=== PATIENT | male | born 1995 | race Caucasian/White ===

== ENCOUNTER 2018-08-17 14:03 | Inpatient (IN) | payer OTHER ==
[~2018-08-17] VITALS: Ht 172.7 cm; Wt 61.2 kg
[~2018-08-17 14:03] MED LIST: FENTANYL CITRATE/PF 100MCG/2 ML INJ ONE; MIDAZOLAM HCL 2 MG/2 ML VIAL ONE
--- OUTSIDE RECORDS SUMMARY | 2018-08-17 14:06 | XMS REPORT ---
Author Author [facility] Address Unknown Phone Unavailable Care Team Providers Care Manager Multicultural Name Role Phone UNKNOWN, REFFERING PP Unavailable Urvashi Hinds Unavailable Unavailable Paulo Jeong Unavailable Unavailable Brandon Miles Unavailable Unavailable IVETH BENDER Unavailable Unavailable Problems This patient has no known problems. Allergies, Adverse Reactions, Alerts This patient has no known allergies or adverse reactions. Medications This patient has no known medications. Results Test Description Test Time Test Comments Text Results Atomic Results Result Comments Facial Bones W/ Mpr 2018-02-16 16:43:00 [place] [address] RADIOLOGY SERVICES REPORT Name: CHRISTOPHE QUINN Acct Number: [id number] :1995 Age:22 Sex:M Ord Phys: Elvis Redding PAC Unit Number: [id number] [address] [facility] [address]: NONE Status: REG ER Exam Date: 02/16/18 EXAM DESCRIPTION: CT - Facial Bones W/ Mpr - 02/16/2018 4:31 pm CLINICAL HISTORY: Right-sided head and facial trauma, right periorbital pain, headache COMPARISON: CT head same date TECHNIQUE: Axial 2 millimeter thick images of the facial bones were obtained with sagittal and coronal reconstruction imaging. All CT scans are performed using dose optimization technique as appropriate and may include automated exposure control or mA/KV adjustment according to patient size. FINDINGS: No mandible fracture identified. Condyles of the mandible are normally positioned. Mastoid air cells are clear. No globe or orbital content abnormality identified. No facial bone fracture is seen. Left deviation of the nasal septum is present anteriorly with slight right deviation in the mid to posterior septum. Patient has significant mucosal thickening of the right maxillary sinus without air-fluid level. Patchy right-sided frontal and ethmoid mucosal thickening present. There is minimal sphenoid mucosal thickening. IMPRESSION: No fracture or other significant bone or soft tissue finding. Significant mucosal thickening of the right maxillary sinus without air-fluid level. Patchy mucosal thickening elsewhere in the right-side sinuses. Signed By: Raymond Raphael MD Signed AT: 02/16/18 1644 Head Brain Wo Cont 2018-02-16 16:40:00 [place] [address] RADIOLOGY SERVICES REPORT Name: CHRISTOPHE QUINN Acct Number: [id number] :1995 Age:22 Sex:M Ord Phys: Elvis Redding Unit Number: [id number] [facility] Dr: FLOYD Status: [facility] ER ER Exam Date: 02/16/18 EXAM DESCRIPTION: CT - Head Brain Wo Cont - 02/16/2018 4:31 pm CLINICAL HISTORY: Headache, blunt force trauma to the right side of the head COMPARISON: CT imaging December 28, 2017 TECHNIQUE: Axial 5 mm thick images of the head were obtained without IV contrast. All CT scans are performed using dose optimization technique as appropriate and may include automated exposure control or mA/KV adjustment according to patient size. FINDINGS: No intracranial hemorrhage, mass, edema or shift of mid- line structures. No acute infarction changes seen. No abnormal extra-axial fluid collections. Ventricles are normal. Mastoid air cells are clear. Facial bones, sinuses and orbits are separately detailed. No acute bony findings. IMPRESSION: Negative non-contrast CT head examination. Intracranial findings are stable from comparison. Signed By: Raymond Raphael MD Signed AT: 02/16/18 1641 Head Brain Wo Cont 2017-12-29 08:29:00 [place] [address] RADIOLOGY SERVICES REPORT Name: CHRISTOPHE QUINN Acct Number: [id number] :1995 Age:22 Sex:M Ord Phys: Paulo Jeong MD Unit Number: [id number] [facility] Arturo BEGUM Status: [facility] ER ER Exam Date: 12/28/17 EXAM DESCRIPTION: CT - Head Brain Wo Cont - 12/29/2017 6:54 am CLINICAL HISTORY: Headache COMPARISON: October 2016 TECHNIQUE: Computed axial tomography of the head was obtained. IV contrast was not requested. Preliminary report was generated by [employer] and reviewed prior to dictation All CT scans are performed using dose optimization technique as appropriate and may include automated exposure control or mA/KV adjustment according to patient size. FINDINGS: An intracranial bleed is not seen . The ventricles are normal in caliber. No extra- axial fluid collection is noted. Fluid within the sinuses/ mastoids is not seen. IMPRESSION: No acute intracranial abnormality is seen. If patient's symptoms persist MRI of the brain would be recommended. Signed By: Ayaan Dodge MD Signed AT: 12/29/17 0830 Abdomen Single View 2017-09-14 12:40:00 [place] [address] RADIOLOGY SERVICES REPORT Name: CHRISTOPHE QUINNDEN Acct Number: [id number] :1995 Age:22 Sex:M Ord Phys: Paulo Bynum MD Unit Number: [id number] [facility] Dr: Gregorio Cano DO Status: [facility] ER Exam Date: 09/14/17 EXAM DESCRIPTION: RAD - Abdomen Single View - 09/14/2017 12:30 pm CLINICAL HISTORY: ABD PAIN Pain COMPARISON: No comparisons FINDINGS: The bowel gas pattern is non-obstructive. No evidence of free air or pneumatosis. No suspicious calcifications. No significant bony findings. IMPRESSION: Negative examination. Signed By: Naveen Jules MD Signed AT: 09/14/17 1240 Chest Pa And Lat (2 Views) 2017-09-14 12:35:00 [place] [address] RADIOLOGY SERVICES REPORT Name: CHRISTOPHE QUINN [place] Acct Number: [id number] :1995 Age:22 Sex:M Ord Phys: Paulo Bynum MD Unit Number: [id number] [facility] Dr: Gregorio Cano DO Status: [facility] ER Exam Date: 09/14/17 EXAM DESCRIPTION: RAD - Chest Pa And Lat (2 Views) - 09/14/2017 12:28 pm CLINICAL HISTORY: MALAISE Asthma, smoker COMPARISON: Chest Pa And Lat (2 Views) dated 05/11/2016 FINDINGS: The lungs are clear. The heart is normal in size. No displaced fractures. IMPRESSION: No acute or concerning finding suspected. Signed By: Naveen Jules MD Signed AT: 09/14/17 1235 Basic Metabolic Panel 2017-09-14 12:09:00 Serum or plasma sodium measurement (moles/volume) (test qnvd=6656-9) 137 mmol/L 136-145 Potassium [Moles/volume] in Serum or Plasma (test zncm=9082-7) 4.1 mmol/L 3.5-5.1 Chloride [Moles/volume] in Serum or Plasma (test pwba=5080-4) 105 mmol/L 98-107 Carbon dioxide, total [Moles/volume] in Serum or Plasma (test nfzl=8431-7) 29 mmol/L 21-32 Glucose [Mass/volume] in Serum or Plasma (test elsk=1676-6) 103 mg/dL 74-106 Urea nitrogen [Mass/volume] in Serum or Plasma (test dqjv=9903-3) 12 mg/dL 7-18 Creatinine [Mass/volume] in Serum or Plasma (test xfah=9691-4) 1.10 mg/dL 0.55-1.3 Estimated glomerular filtration rate (GFR) determination (test jwwd=38344-0) 85 mL =/>90 FOR CHRONIC KIDNEY DISEASE: GFR STAGE DESCRIPTION=/>90 STAGE 1 NORMAL--OR-- MINIMAL KIDNEY DAMAGE WITH NORMAL GFR 60-89 STAGE 2 MILD DECREASE IN GFR 30-59 STAGE 3 MODERATE DECREASE IN GFR 15-29 STAGE 4 SEVERE DECREASE IN GFR <15 STAGE 5 KIDNEY FAILURE The Glomerular Filtration Rate (GFR) has been calculated using the IDMS-Traceable MDRD Study Equation. Calcium [Mass/volume] in Serum or Plasma (test zbyy=92982-5) 9.1 mg/dL 8.5-10.1 Comment Bed:11Creatine kinase [Enzymatic activity/volume] in Serum or Plasma 2017-09-14 12:09:00* Test Item Value Reference Range Comments Creatine kinase [Enzymatic activity/volume] in Serum or Plasma (test tdxh=5625-7) 74 U/L 39-308 Comment Bed:Influenza Type A Aumowcl2944-70-63 12:04:00* Test Item Value Reference Range Comments FLU A ----- (test code=FLUA) NEGATIVE (could be below detectable limits, suggest culture) Comment Bed:11Influenza Type B Tprcfyt9390-31-19 12:04:00* Test Item Value Reference Range Comments FLU B ----- (test code=FLUB) NEGATIVE (could be below detectable levels, suggest culture) Comment Bed:11Complete blood count (CBC) with automated white blood cell (WBC) oqslzrjhsnay3335-04-72 11:54:00* Test Item Value Reference Range Comments White blood cell count (test cwku=KDE7007) 5.5 4.3-10.9 Blood erythrocytes count (number/volume) (test rlvk=72532-7) 5.62 M/ul 4.33-5.43 Hemoglobin measurement (test iacq=IZG2972) 15.8 g/dL 13.6-17.9 Blood hematocrit (volume fraction) (test wrsr=68657-1) 47.7 % 39.6-49.0 MCV (test tpae=55300-9) 84.9 fL 80-100 MCH (test jtvg=69436-5) 28.0 pg 27.0-35.0 MCHC (test code=MCHC) 33.0 g/dL 32.0-36.0 Platelets (test code=PLT) 156 152-406 Red Cell Distribution Width (test code=RDW) 14.5 % 12.1-15.2 Blood platelet mean volume (test pcmw=11813-8) 9.3 fL 7.6-11.3 Neutrophils % (test code=JALYN%) 79.5 % 41.7-73.7 Lymphocytes/leuk NFr Bld (test dxwj=18715-5) 9.0 % 15.3-44.8 Monocyte percentage (test tvxo=0997-6) 9.7 % 3.3-12.3 Eosinophil % (test yhtu=881-0) 1.2 % 0-4.4 Basophil % (test bqwh=75434-9) 0.6 % 0-1.3 Absolute neutrophil count (test ajun=951-7) 4.4 1.8-8.0 Absolute lymphocyte count (test xyzy=48178-0) 0.5 0.7-4.9 Absolute monocyte count (test jnqo=031-6) 0.5 0.1-1.3 Absolute Eosinophils (test code=EOA) 0.1 0-0.5 Absolute Basophils (test code=BASA) 0.0 0-0.5 Comprehensive Metabolic Smsom8726-69-66 22:10:00* Test Item Value Reference Range Comments Sodium (test code=NA) 141 mmol/L 135-145 Potassium (test code=K) 4.1 mmol/L 3.5-5.1 Chloride (test code=CL) 103 mmol/L 98-105 Carbon Dioxide (test code=CO2) 26 mmol/L 22-29 Glucose (test code=GLU) 97 mg/dL 70-115 Blood Urea Nitrogen (test code=BUN) 8 mg/dL 6-20 Creatinine (test code=CREAT) 0.9 mg/dL 0.7-1.2 Calcium (test code=CA) 9.4 mg/dL 8.3-10.5 Prot Total (test code=TP) 7.2 g/dL 6.4-8.3 Albumin (test code=ALB) 4.5 g/dL 3.5-5.2 A/G Ratio (test code=AGRATIO) 1.7 Ratio Globulin (test code=GLOB) 2.7 2.9-3.1 Bili Total (test code=TBIL) 0.3 mg/dL 0.1-0.9 Alk Phos (test code=APHOS) 79 U/L 40-129 AST (test code=AST) 16 U/L 1-40 ALT (test code=ALT) 9 U/L 1-41 BUN/Creatinine Ratio (test code=BCRATIO) 8.9 Anion Gap (test code=AGAP) 12 mmol/L 7-16 Estimated GFR (test code=GFR) >60 mL/min/1.73m2 eGFR (estimated Glomerular Filtration Rate) is an estimated value,calculated from the patient's serum creatinine using the MDRD equation.It is NOT the patient's actual GFR. The eGFR provides a more clinicallyuseful measure of kidney disease than serum creatinine alone.This calculation takes sex and race into account, if the informationis provided. If the race is not provided, and the patient isAfrican-Ugandan, multiply by 1.212. If sex is not provided, and thepatient is female, multiply by 0.742. Results for patients <18 years ofage have not been validated by the MDRD study and should be interpretedwith caution.eGFR Result Interpretation:eGFR > or=60 is in the Normal RangeeGFR < 60 may mean kidney diseaseeGFR < 15 may mean kidney failureRanges recommended by the National Kidney Foundat ion,http://nkdep.nih.gov AJY5X3561-20-18 22:02:00* Test Item Value Reference Range Comments Amphetamine (test code=AMPH) Negative Negative For diagnostic purposes only, positive results should always be assessedin conjunctionwith the patient's medical history,clinical examination and otherfindings.To fulfill legal requirements, a more specific alternate chemical methodmust be used inorder to obtain a Confirmed analytical result. GC/MS is the preferred confirmatory method. Barbiturates (test code=GEORGES) Negative Negative Benzodiazepine (test code=WILLIAM) Negative Negative Cocaine (test code=COCA) Negative Negative Methadone (test code=MTHD) Negative Negative Opiates (test code=OPIA) Negative Negative PCP (test code=PCP) Negative Negative Propoxyphene (test code=PROPOX) Negative Negative THC (test code=THC) POSITIVE Negative Alcohol, Urine (test code=ETOHU) <0.01 g/dL 0.00-0.01 Urinalysis Thkivygy4331-60-52 21:45:00* Test Item Value Reference Range Comments Color (test code=COLOR) Yellow Yellow,Straw,Pl yellow Clarity (test code=CLAR) Clear Clear Specific [place] (test code=SPGR) 1.012 1.001-1.035 pH (test code=PH) 5.0 5.0-9.0 Ketone (test code=KET) Negative mg/dL Negative Glucose (test code=GLUCUR) Negative mg/dL Negative Protein (test code=PROT) Negative mg/dL Negative Bilirubin (test code=BILI) Negative mg/dL Negative Occult Blood (test code=UDOB) Negative Negative Urobilinogen (test code=UROB) 0.2 mg/dL 0.2-1.0 Nitrite (test code=NIT) Negative Negative Leuk Esterase (test code=LEUK) Negative Negative Micros Exam (test code=MEXAM) Not indicated CBC with Skkfjwbbksvx5043-95-67 21:44:00* Test Item Value Reference Range Comments WBC (test code=WBC) 8.2 K/cumm 4.4-10.5 RBC (test code=RBC) 5.37 M/cumm 4.10-5.70 Hemoglobin (test code=HGB) 15.3 gm/dL 13.4-17.4 Hematocrit (test code=HCT) 45.6 % 38.7-52.0 MCV (test code=MCV) 85.0 fL 80-100 MCH (test code=MCH) 28.6 pg 27.0-32.5 MCHC (test code=MCHC) 33.6 g/dL 32.0-37.5 RDW (test code=RDW) 13.5 % 11.5-14.5 Platelet Count (test code=PLTCT) 182 K/cumm 140-440 MPV (test code=MPV) 8.1 fL Diff Method (test code=DIFFM) Auto Neutrophil (test code=NEUT) 77.4 % 36-70 Lymphocyte (test code=LYMPH) 13.7 % 12-44 Monocyte (test code=MONO) 7.4 % 0-11 Eosinophil (test code=EOS) 1.1 % 0-7 Basophil (test code=BASO) 0.4 % 0-2 Neutro Abs (test code=ANEUT) 6.4 K/cumm 1.6-7.4 Lymph Abs (test code=ALYMPH) 1.1 K/cumm 0.5-4.6 [place] Abs (test code=AMONO) 0.6 K/cumm 0.0-1.2 Eos Abs (test code=AEOS) 0.09 K/cumm 0.00-0.74 Baso Abs (test code=ABASO) 0.0 K/cumm 0.00-0.21 Urine dipstick testing at raaxi-hq-mmxe0882-08-19 20:43:00* Test Item Value Reference Range Comments Urine specific gravity measurement (test vtph=6579-2) 1.020 1.005-1.030 Urine glucose detection (test cagj=3976-2) Negative NEG Urine Ketones (test code=UKET) NEGATIVE NEG Urine blood detection (test oxmi=55139-0) Negative NEG Urine pH (test bwcl=3946-8) 7.5 5.0-7.0 Urinalysis with microscopy (test wbeu=64214-2) NEGATIVE NEG Urine nitrate measurement (test smcv=03690-6) NEGATIVE NEG Urine Leukocyte Esterase (test code=UESTR) NEGATIVE NEG Comment Bed:16 edr NEG NEG NEG NEG NEG 7.5 NEG Y 1.020Complete blood count (CBC) with automated white blood cell (WBC) gwsgcrygyydr1370-20-90 20:28:00* Test Item Value Reference Range Comments White blood cell count (test zrqj=WMG2855) 7.6 4.3-10.9 Blood erythrocytes count (number/volume) (test tbmr=04169-7) 5.36 M/ul 4.33-5.43 Hemoglobin measurement (test dasb=RHL2508) 15.2 g/dL 13.6-17.9 Blood hematocrit (volume fraction) (test bzma=37292-6) 45.5 % 39.6-49.0 MCV (test jpzd=33698-6) 84.9 fL 80-100 MCH (test levn=18157-1) 28.4 pg 27.0-35.0 MCHC (test code=MCHC) 33.4 g/dL 32.0-36.0 Platelets (test code=PLT) 188 152-406 Red Cell Distribution Width (test code=RDW) 14.1 % 12.1-15.2 Blood platelet mean volume (test pgtp=37972-1) 9.5 fL 7.6-11.3 Neutrophils % (test code=JALYN%) 73.1 % 41.7-73.7 Lymphocytes/leuk NFr Bld (test tamc=17717-6) 17.8 % 15.3-44.8 Monocyte percentage (test zowm=1997-8) 7.9 % 3.3-12.3 Eosinophil % (test bqka=126-0) 0.7 % 0-4.4 Basophil % (test rsuu=17880-6) 0.5 % 0-1.3 Absolute neutrophil count (test dmym=573-1) 5.5 1.8-8.0 Absolute lymphocyte count (test jyjv=81986-2) 1.3 0.7-4.9 Absolute monocyte count (test trov=979-1) 0.6 0.1-1.3 Absolute Eosinophils (test code=EOA) 0.0 0-0.5 Absolute Basophils (test code=BASA) 0.0 0-0.5 Serum or plasma ethanol epglkbdkk1365-62-41 20:27:00Test Ordered to Rule Out VTE/DVT? N< 10^^SCT^< 10(No normal range; <50 has limited clinical effect)Basic Metabolic Nivpj0115-52-74 20:27:00* Test Item Value Reference Range Comments Sodium level (test evtx=LOD3292) 143 meq/L 135-145 3.8 Chloride measurement (test ssyo=QEQ9710) 107 meq/L 101-111 Bicarbonate (test code=CO2) 30 meq/L 21-31 Glucose measurement (test bcwn=YGL7062) 90 mg/dL 65-120 ADA Clinical Practice Recommendation: <100 mg/dl=Normal Fasting Glucose BUN Bld-mCnc (test nntf=6440-2) 14 mg/dL 6-20 Creatinine measurement (test zzmn=ZIX3838) 1.14 mg/dL 0.61-1.24 The creatinine method used has been calibrated to be traceable to Isotope dilution Mass Spectrometry (IDMS). For more information: www.nkdep.nih.gov Estimated glomerular filtration rate (GFR) determination (test aufv=69963-8) 83 mL =/>90 FOR CHRONIC KIDNEY DISEASE: GFR STAGE DESCRIPTION=/>90 STAGE 1 NORMAL--OR-- MINIMAL KIDNEY DAMAGE WITH NORMAL GFR 60-89 STAGE 2 MILD DECREASE IN GFR 30-59 STAGE 3 MODERATE DECREASE IN GFR 15-29 STAGE 4 SEVERE DECREASE IN GFR <15 STAGE 5 KIDNEY FAILURE The Glomerular Filtration Rate (GFR) has been calculated using the IDMS-Traceable MDRD Study Equation. Calcium Level (test code=CA) 9.6 mg/dL 8.5-10.5 Test Ordered to Rule Out VTE/DVT? NLiver (Hepatic) Skzzzuam8070-54-81 20:27:00* Test Item Value Reference Range Comments Aspartate aminotransferase (AST) measurement (test ycia=ICB9150) 17 [iU]/L 10-42 ALT/SGPT (test code=SGPT) 10 [iU]/L 10-60 Alkaline Phosphatase (test code=ALK) 71 [iU]/L 42-121 Bilirubin total (test piji=ISV0962) 0.5 mg/dL 0.3-1.2 Bilirubin direct (test whek=2266-4) <0.1 mg/dL 0-0.2 Serum total protein measurement (test yqii=6706-0) 7.6 g/dL 6.0-8.3 Albumin measurement (test pylc=XDA6366) 4.4 g/dL 3.2-5.5 Globulin (test code=GLOB) 3.2 g/dL 2.3-3.5 Albumin/Globulin Ratio (test code=A/G) 1.4 1.1-1.8 Test Ordered to Rule Out VTE/DVT? NAcetaminophen Wpnny0294-21-15 20:27:00* Test Item Value Reference Range Comments Acetaminophen Level (test code=ACETA) < 10.0 10-30 PANIC VALUES: AFTER 4 HRS. INGESTION RESULT >200 AFTER 12 HRS. INGESTION RESULT >50 Test Ordered to Rule Out VTE/DVT? NSalicylates Szjzl2625-36-11 20:27:00* Test Item Value Reference Range Comments Salicylates Level (test code=DAIANA) < 4.0 <30 Test Ordered to Rule Out VTE/DVT? NUrine drug hnwieu8253-22-98 20:04:00* Test Item Value Reference Range Comments Phencyclidine, Urine (test code=PCP) NEGATIVE Benzodiazepines (test code=BZO) NEGATIVE Urine cocaine detection by screening method (test tliq=57237-8) Negative Amphetamines,Urine (test code=AMP) NEGATIVE Urine rouuz-3-gkhibuminnnzngsspciq (THC) measurement (test fyvu=ZIQ7792) POSITIVE Urine opiates detection (test vygj=7648-0) Negative Barbiturates (test code=BAR) NEGATIVE Oxycodone, Urine (test code=OXY) NEGATIVE Urine methylenedioxymethamphetamine (MDMA) detection (test kvnw=68320-8) Negative This urine was qualitatively tested for the following drugs at the cut-off levels listed: DRUG CUT-OFF LEVEL ---- PHENCYCLIDINE 25 ng/mL BENZODIAZEPINES 200 ng/mL COCAINE 300 ng/mL AMPHETAMINES 1000 ng/mL TETRAHYDROCANNABINOL 50 ng/mL OPIATES 2000 ng/mL BARBITURATES 200 ng/mL OXYCODONE 300 ng/mL ECSTASY 500 ng/mL These are only preliminary test results. Positive results have not been confirmed. For a confirmed analytical result, gas chromatography/mass spectrometry is the preferred method. Results are to be used only for medical (i.e. treatment) purposes. Unconfirmed screening results must not be used for non-medical purposes (e.g. employment testing, legal testing). Comment Bed:16 Test Ordered to Rule Out VTE/DVT? NProthrombin time (PT) with international normalized ratio (INR)2016-11-07 20:04:00* Test Item Value Reference Range Comments PT Prothrombin Time (test code=PROTIME) 12.1 s 9.5-12.5 INR in Blood by Coagulation assay (test vedp=88875-8) 1.03 Monitor pts using INR value (not prothrombin time) INR Coumadin Therapy: Low Range (prophylaxis) 2.0-3.0 High Range (high risk of clot formation) 2.5-3.5 Test Ordered to Rule Out VTE/DVT? N Test Ordered to Rule Out VTE/DVT? NPTT, Activated Partial Gbjdsh8190-88-91 20:04:00* Test Item Value Reference Range Comments PTT, Activated Partial Thromb (test code=PTT) 28.8 s 24.3-36.9 Test Ordered to Rule Out VTE/DVT? N Test Ordered to Rule Out VTE/DVT? NFoot Right 2 View[place] [address] Name: CHRISTOPHE QUINN Phys: Collette Caal NP : 1995 Age: 21 Sex:M Acct: [id number] Loc: ER Exam Date: 12/13/16 Status: [facility] ER Radiology Number: Unit Number: [id number] EXAM DESCRIPTION: RAD - Foot Right 2 View - 12/13/2016 5:36 pm CLINICAL HISTORY: Trauma to the foot, decreased range of motion COMPARISON: None. FINDINGS: An oblique fracture is present through the medial side base of the first distal phalanx. This extends to the articular surface. No significant distraction and no angulation deformity. Oft tissues of the first toe edematous. No foreign body seen. No other fracture or acute bone finding. IMPRESSION: Nondisplaced, nonangulated oblique fracture through the base of the first distal phalanx. Signed By: Raymond Raphael MD Signed AT: 12/13/16 1832 Head Brain Wo [place] [address] Name: CHRISTOPHE QUINN Phys: Mauri Buenrostro NP : 1995 Age: 21 Sex:M Acct: [id number] Loc: ER Exam Date: 11/07/16 Status: REG ER Radiology Number: Unit Number: [id number] EXAM DESCRIPTION: CT - Head Brain Wo Cont - 11/07/2016 7:49 pm CLINICAL HISTORY: Syncope COMPARISON: CT head February 2015 TECHNIQUE: Axial 5 mm thick images of the head were obtained without IV contrast. FINDINGS: No intracranial hemorrhage, mass, edema or shift of mid-line structures. No acute infarction changes seen. No abnormal extra-axial fluid collections. Ventricles are normal. Mastoid air cells and visualized portions of the paranasal sinuses are clear. No acute bony findings. IMPRESSION: Negative non-contrast CT head examination. Signed By: Raymond Raphael MD Signed AT: 11/07/162006
[2018-08-17] MEDS ORDERED: PIPER-TAZ 3.375 GM 50 ML IV ONE (15:00)
[2018-08-17 15:08] LABS: BASOPHILS % 0.3 % (0.0-1.0); EOSINOPHILS # (AUTO) 0.1 (0.0-0.4); EOSINOPHILS % 1.2 % (0.0-6.0); HEMATOCRIT 42.8 % (38.2-49.6); HEMOGLOBIN 15.1 g/dL (14.0-18.0); LYMPHOCYTES # (AUTO) 1.5 (1.0-3.2); LYMPHOCYTES % 13.1 % (18.0-39.1); MEAN CORPUSCULAR HEMOGLOBIN 29.1 pg (28-32); MEAN CORPUSCULAR HGB CONC 35.3 g/dL (31-35); MEAN CORPUSCULAR VOLUME 82.5 fL (81-99); MONOCYTES # (AUTO) 0.7 (0.2-0.8); MONOCYTES % 5.9 % (4.4-11.3); NEUTROPHILS # (AUTO) 8.9 (2.1-6.9); NEUTROPHILS % 79.2 % (38.7-80.0); PLATELET COUNT 209 x10e3/uL (140-360); RED BLOOD COUNT 5.19 x10e6/uL (4.3-5.7); RED CELL DISTRIBUTION WIDTH 13.1 % (11.7-14.4)
[2018-08-17] MEDS ORDERED: CLINDAMYCIN 600MG / 50ML 50 ML IV STA (15:16)
[2018-08-17 15:25] LABS: BLOOD UREA NITROGEN 16 mg/dL (7-26); BUN/CREATININE RATIO 17 (6-25); CALCIUM 9.4 mg/dL (8.4-10.2); CARBON DIOXIDE 23 mmol/L (22-29); CHLORIDE 105 mmol/L (98-107); CREATININE, SERUM 0.92 mg/dL (0.72-1.25); EST GLOMERULAR FILTRATION RATE > 60 ML/MIN (60-); GLUCOSE 93 mg/dL (74-118); SODIUM 135 mmol/L (136-145)
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
[2018-08-17 15:47] LABS: INR 0.87; PROTHROMBIN TIME 12.3 seconds (11.9-14.5)
[2018-08-17] MEDS ORDERED: HYDROGEN PEROXIDE 120 ML BTL ONE (16:42)
[2018-08-17] MEDS ORDERED: BACITRACIN 50,000 UNIT VIAL ONE (16:45)
[2018-08-17] MEDS ORDERED: MUPIROCIN 2% OINT 22 GM TUBE ONE (16:45)
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
[2018-08-17] MEDS ORDERED: DEXAMETHASONE SOD PHOS INJ 4 MG/ML VIAL ONE (17:29)
[2018-08-17] MEDS ORDERED: KETOROLAC TROMETHAMINE 30 MG/ML VIAL ONE (17:29)
[2018-08-17] MEDS ORDERED: PROPOFOL IV EMULSION 10 MG/ML 20 ML VIAL ONE (17:29)
[2018-08-17] MEDS ORDERED: LIDOCAINE HCL 2% LOCAL INJ 5 ML SDV VIAL INJ ONE (17:29)
[2018-08-17] MEDS ORDERED: ONDANSETRON HCL INJ 2MG/ML 2ML 2 MG/ML VIAL ONE (17:29)
[2018-08-17] MEDS ORDERED: SEVOFLURANE INHAL SOLN 250 ML PEN BTL ONE (17:29)
[2018-08-17] MEDS ORDERED: DEXTROSE 5%/LACTATED RINGERS 1,000 ML IV SCH (18:12)
[2018-08-17] MEDS ORDERED: ONDANSETRON HCL INJ 2MG/ML 2ML 2 MG/ML VIAL IV PRN (18:15)
--- NOTE | 2018-08-17 19:00 | NUR ---
Patient transferred from PACU, A&Ox4, self transfer from stretcher to bed. Respirations even & unlabored, no distress noted. Wound dressing noted to right leg, C/D/I, per PACU nurse patient has audrey drain in place. Keep right leg elevated on 2 pillows per MD. Patient rates pain level 6/10 to right leg, per PACU nurse patient was medicated and advised to hold PRN pain meds for now due to h/o asthma. IV fluids running to R FA 18g, no infiltration noted, L AC 18g SL, patent & no infiltration noted. Call light within reach, side rails x2 raised & bed set to lowest position.
[2018-08-17 20:00] VITALS: BP 110/53
[2018-08-17] MEDS: PIPER-TAZ 3.375 GM 50 ML IV SCH (21:16)
[2018-08-17] MEDS ORDERED: CLINDAMYCIN 600MG / 50ML 50 ML IV SCH (22:00)
[2018-08-17] MEDS: CLINDAMYCIN 600MG / 50ML 50 ML IV SCH (22:12)
[2018-08-17 22:14] VITALS: BP 110/53
[2018-08-17] MEDS: HYDROCODONE/APAP 7.5MG-325MG 1 EA TAB PO PRN (23:37)
[2018-08-18] VITALS (9 sets, daily range): BP systolic 98–113; BP diastolic 53–59
[2018-08-18] MEDS ORDERED: PIPER-TAZ 3.375 GM 50 ML IV SCH
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
[2018-08-18] MEDS: PIPER-TAZ 3.375 GM 50 ML IV SCH ×4 (03:05→17:25)
[2018-08-18 05:57] LABS: BASOPHILS % 0.1 % (0.0-1.0); HEMATOCRIT 39.1 % (38.2-49.6); HEMOGLOBIN 13.2 g/dL (14.0-18.0); LYMPHOCYTES # (AUTO) 0.7 (1.0-3.2); LYMPHOCYTES % 6.1 % (18.0-39.1); MEAN CORPUSCULAR HEMOGLOBIN 28.6 pg (28-32); MEAN CORPUSCULAR HGB CONC 33.8 g/dL (31-35); MEAN CORPUSCULAR VOLUME 84.8 fL (81-99); MONOCYTES # (AUTO) 0.6 (0.2-0.8); MONOCYTES % 5.1 % (4.4-11.3); NEUTROPHILS # (AUTO) 10.4 (2.1-6.9); NEUTROPHILS % 88.3 % (38.7-80.0); PLATELET COUNT 175 x10e3/uL (140-360); RED BLOOD COUNT 4.61 x10e6/uL (4.3-5.7); RED CELL DISTRIBUTION WIDTH 13.2 % (11.7-14.4)
[2018-08-18] MEDS: CLINDAMYCIN 600MG / 50ML 50 ML IV SCH ×3 (06:25→22:03)
--- NOTE | 2018-08-18 10:00 | NUR ---
Call to Dr. Camacho for orders for PT eval and use of crutches but not available at this time.
[2018-08-18] MEDS: HYDROCODONE/APAP 7.5MG-325MG 1 EA TAB PO PRN ×3 (10:07→20:00)
[2018-08-18] MEDS ORDERED: ONDANSETRON HCL 4 MG ORAL DISINTEGRATING TAB PO PRN (12:00)
--- NOTE | 2018-08-18 12:20 | NUR ---
Spoke with Dr. yu and orders for PT, NWB to RLE and PT to provide patient with crutches for ambulation
--- NOTE | 2018-08-18 14:41 | NUR ---
Patient OOB and ambulated with PT using crutches for about 400 feet per PT. Orders in to provide crutches and called CM.
[2018-08-18] MEDS: HYDROMORPHONE 2MG/ML 2 MG/ML ML IV PRN (22:39)
--- NOTE | 2018-08-18 22:39 | NUR ---
Patient c/o severe pain to right calf, stated it feels different than before, described it as a stabbing pain, patient is having numbness & tingling to toes, +pulses, good capillary refills, and patient is able to wiggle toes, still severe swelling to right foot noted, repositioned pillows under heel. Will medicate as ordered and will continue to monitor patient.
[2018-08-19 00:05] VITALS: BP 116/55
[2018-08-19] MEDS: PIPER-TAZ 3.375 GM 50 ML IV SCH ×4 (00:08→17:10)
--- NOTE | 2018-08-19 00:17 | NUR ---
received report for Shira. patient is alert & oriented, IV's intact, patient states pain level 5 denies pain pill. will wait for the IV medications due.
[2018-08-19] MEDS: HYDROMORPHONE 2MG/ML 2 MG/ML ML IV PRN ×4 (02:24→17:44)
[2018-08-19 04:24] VITALS: BP 113/57
[2018-08-19] MEDS: CLINDAMYCIN 600MG / 50ML 50 ML IV SCH ×2 (05:10→13:59)
--- NOTE | 2018-08-19 07:25 | NUR ---
RECEIVED PATIENT ASLEEP IN BED NO SIGNS OF DISTRESS. BED LOW, WHEELS LOCKED, SIDE RAILS X2, CALL LIGHT IN REACH. WILL CONTINUE TO MONITOR PATIENT.
[2018-08-19 08:36] VITALS: BP 110/53
--- NOTE | 2018-08-19 09:15 | NUR ---
PATIENT A/O X3, EVEN RESPIRATIONS ON RA. BOWEL SOUNDS ACTIVE, SKIN INTACT, NO EDEMA. RIGHT CALF DRESSING CLEAN DRY AND INTACT. LEFT AC IV AND RIGHT FA IV INTACT/PATENT. PATIENT AMBULATES WITH CRUTCHES AND STANDBY ASSIST. VOIDS IN TOILET. NO SIGNS OF DISTRESS. CALL LIGHT IN REACH WILL CONTINUE TO MONITOR PATIENT.
[2018-08-19] MEDS: HYDROCODONE/APAP 7.5MG-325MG 1 EA TAB PO PRN (09:21)
[2018-08-19 11:06] VITALS: BP 110/53
[2018-08-19 12:08] VITALS: BP 120/59
--- NOTE | 2018-08-19 13:15 | NUR ---
PATIENT COMPLAINED OF PAIN TO RIGHT FA IV. REMOVED IV. CATHETER TIP INTACT AND PRESSURE DRESSING APPLIED.
[2018-08-19 15:41] VITALS: BP 117/61
[2018-08-19] MEDS ORDERED: TYLENOL WITH C1 EACH PO (18:07)
[2018-08-19] MEDS ORDERED: PHENERGAN SUPP25 MG PO (18:08)
[2018-08-19] MEDS ORDERED: CLINDAMYCIN HC150 MG PO (18:13)
--- NOTE | 2018-08-19 18:23 | NUR ---
REMOVED PATIENTS IV CATHETER TIP INTACT AND PRESSURE DRESSING APPLIED.
--- NOTE | 2018-08-19 18:35 | NUR ---
PATIENT DISCHARGED FROM FACILITY. PATIENT GATHERED ALL PERSONAL BELONGINGS, PRESCRIPTIONS, DISCHARGE INSTRUCTIONS, AND FOLLOW UP INFORMATION. LEFT UNIT IN WHEELCHAIR AND WENT HOME VIA PRIVATE AUTO. NO SIGNS OF DISTRESS LEAVING FACILITY.
== END 2018-08-19 18:35 | disposition home or self-care (01) | DRG 909 ==
LOC: ER 14:03 → OR 15:16 → ERHOLD 15:43 → UNDOADMOB 15:43 → OBSVTOIN 18:45 → MED/SURG 18:45
PROVIDERS: ADMIT Surgery; ATTEND Surgery
PROC: 0KBS0ZZ Excision of Right Lower Leg Muscle, Open Approach (ICD-10-PCS; principal; 2018-08-17 17:00)
DX: S81.841A Puncture wound with foreign body, right lower leg, initial encounter (principal); W31.2XXA Contact with powered woodworking and forming machines, initial encounter; Y93.H3 Activity, building and construction; X58.XXXA Exposure to other specified factors, initial encounter; Y99.0 Civilian activity done for income or pay; Y92.69 Other specified industrial and construction area as the place of occurrence of the external cause
CPT/HCPCS: 36415; 80048; 85025; 85610; 85730; 86850; 86900; 97139; 99284; J1100; J1885; J2001; J2250; J2405; J2543

== ENCOUNTER → 2018-08-26 | Day surgery (SDC) | payer OTHER ==
[~2018-08-26] MED LIST changes: +BACITRACIN ZINC 15 GM OINT ONE; +CEFAZOLIN SOD 1 GM VIAL ONE; +CLINDAMYCIN HC150 MG PO; +DEXAMETHASONE SOD PHOS INJ 4 MG/ML VIAL ONE; -FENTANYL CITRATE/PF 100MCG/2 ML INJ ONE; +HYDROCODONE/APAP 7.5MG-325MG 1 EA TAB ONE; +HYDROGEN PEROXIDE 120 ML BTL ONE; +KETOROLAC TROMETHAMINE 30 MG/ML VIAL ONE; -MIDAZOLAM HCL 2 MG/2 ML VIAL ONE; +ONDANSETRON HCL INJ 2MG/ML 2ML 2 MG/ML VIAL ONE; +PHENERGAN SUPP25 MG PO; +PROPOFOL IV EMULSION 10 MG/ML 20 ML VIAL ONE; +SEVOFLURANE INHAL SOLN 250 ML PEN BTL ONE; +TYLENOL WITH C1 EACH PO
--- NOTE | 2018-08-26 07:20 | NUR ---
SPIRITUAL CARE - Pre-Surgery Assessment: Pt in bed. Pt's girlfriend at bedside. Pt reported supportive attention from family and friends. Intervention: I provided pastoral presence, hospitality, and sympathetic listening. I acquainted pt with availability of physical therapist assistant while hospitalized. Outcome: Pt expressed appreciation for visit. No need for follow up indicated at this time. [facility] Spiritual Care Department O: [phone] Pager: [phone] ([phone] calling from)
[2018-08-26 10:05] VITALS: BP 109/58
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
== END | disposition home or self-care (01) ==
LOC: OR 05:42
PROVIDERS: ATTEND Surgery
DX: S81.801A Unspecified open wound, right lower leg, initial encounter (principal); W20.8XXA Other cause of strike by thrown, projected or falling object, initial encounter; Z87.891 Personal history of nicotine dependence
CPT/HCPCS: 13160 ×2; J0690; J1100; J1885; J2405; J2704